=== PATIENT | female | born 1970 | race Caucasian/White ===

== ENCOUNTER 2017-12-11 14:21 | Emergency (ER) | payer OTHER ==
[2017-12-11] MEDS: LORAZEPAM 1 MG TAB PO (17:38)
[2017-12-11] MEDS: IBUPROFEN 600 MG TAB PO (17:39)
[2017-12-11 18:01] LABS: ADD MAN DIFF? NO
[2017-12-11 18:07] LABS: WHITE BLOOD COUNT 5.1 10^3/ul (4.8-10.8)
[2017-12-11 18:07] LABS: BASOPHILS % 0.4 % (0.0-2.0); EOSINOPHILS # 0.1 10^3/ul (0.0-0.5); EOSINOPHILS % 2.7 % (0.0-7.0); HEMATOCRIT 35.1 % (37.0-47.0); HEMOGLOBIN 12.1 g/dl (12.0-16.0); LYMPHOCYTES # 1.2 10^3/ul (0.8-2.9); LYMPHOCYTES % 22.7 % (15.0-51.0); MEAN CORPUSCULAR HEMOGLOBIN 32.6 pg (29.0-33.0); MEAN CORPUSCULAR HGB CONC 34.5 g/dl (32.0-37.0); MEAN CORPUSCULAR VOLUME 94.6 fl (82.0-101.0); MONOCYTE # 0.3 10^3/ul (0.3-0.9); MONOCYTES % 5.7 % (0.0-11.0); NEUTROPHIL # 3.5 10^3/ul (1.6-7.5); NEUTROPHILS % 68.1 % (39.0-77.0); PLATELET COUNT 384 10^3/UL (140-415); RED BLOOD COUNT 3.71 10^6/ul (4.20-5.40); RED CELL DISTRIBUTION WIDTH 13.1 % (11.5-14.5)
[2017-12-11 18:26] LABS: ANION GAP 16 (8-16); BLOOD UREA NITROGEN 8 mg/dl (7-20); CALCIUM 8.9 mg/dl (8.4-10.2); CARBON DIOXIDE 24 mmol/L (21-31); CHLORIDE 105 mmol/L (97-110); CREATININE 0.54 mg/dl (0.44-1.00); GLUCOSE 102 mg/dl (70-220); SODIUM 141 mmol/L (135-144)
== END 2017-12-11 19:17 | disposition home or self-care (01) ==
LOC: FTE 14:21
DX: F41.9 Anxiety disorder, unspecified (principal)
CPT/HCPCS: 36415; 70450; 80048; 85025; 99284-25

== ENCOUNTER 2017-12-15 16:12 | Emergency (ER) | payer OTHER ==
[2017-12-15 21:11] LABS: URINE BLOOD (Dip) POC 3+ (NEGATIVE); URINE GLUCOSE (Dip) POC Negative (NEGATIVE); URINE KETONES (Dip) POC Negative (NEGATIVE); URINE LEUKOCYTE EST (Dip) POC Negative (NEGATIVE); URINE NITRITE (Dip) POC Negative (NEGATIVE); URINE TOTAL PROTEIN POC Negative (NEGATIVE)
[2017-12-15] MEDS: SOD CHLORIDE 0.9% 500 ML IV (21:11)
[2017-12-15] MEDS: DIPHENHYDRAMINE 50 MG INJ IV ×2 (21:12→21:28)
[2017-12-15] MEDS: METOCLOPRAMIDE 10 MG INJ IV (21:12)
[2017-12-15] MEDS: LORAZEPAM 2 MG INJ IV (21:28)
[2017-12-15] MEDS: BENZTROPINE 2 MG INJ IV (21:29)
== END 2017-12-15 23:28 | disposition home or self-care (01) ==
LOC: FTE 16:12
DX: R51 Headache (principal)
CPT/HCPCS: 81003; 96374; 96375; 99284-25

== ENCOUNTER 2017-12-17 13:44 | Emergency (ER) | payer OTHER ==
[2017-12-17] MEDS: traMADol 50 MG TAB PO ×2 (23:32→23:41)
== END 2017-12-17 23:44 | disposition home or self-care (01) ==
LOC: E/R 13:44
DX: R51 Headache (principal); F43.0 Acute stress reaction; R42 Dizziness and giddiness; R40.2252 Coma scale, best verbal response, oriented, at arrival to emergency department; R40.2142 Coma scale, eyes open, spontaneous, at arrival to emergency department; R40.2362 Coma scale, best motor response, obeys commands, at arrival to emergency department
CPT/HCPCS: 93005; 99283-25